=== PATIENT | female | born 1985 | race African-American/Black ===

== ENCOUNTER 2017-04-08 08:54 | Emergency (ER) | payer OTHER ==
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
[~2017-04-08 08:54] MED LIST: BP MED; FLEXERIL10 M1 PO; IBUPROFEN800 MG PO
[2017-04-08 10:08] LABS: URINE SOURCE CLEAN CATCH
[2017-04-08 10:12] LABS: BASOPHIL# 0.4 X10e3 (0-0.3); BASOPHIL% 4.1 % (0-2.5); EOSINOPHIL# 0.5 X10e3 (0-0.7); EOSINOPHIL% 5.2 % (0.0-7.0); HEMATOCRIT 37.1 % (35.0-45.0); HEMOGLOBIN 11.6 gm/dL (12.0-16.0); LYMPHOCYTE% 33.3 % (17.0-45.0); MEAN CELL VOLUME 64.8 FL (83-96); MEAN CORPUSCULAR HEMOGLOBIN 20.2 PG (28-34); MEAN CORPUSCULAR HGB CONC 31.2 g/dL (30-36); MEAN PLATELET VOLUME 7.9 FL (6.5-11.5); MONOCYTE# 0.5 X10e3 (0-1.0); MONOCYTE% 5.5 % (3.0-12.0); NEUTROPHIL# 4.6 X10e3 (1.5-7.1); NEUTROPHIL% 51.9 % (40-75); PLATELET COUNT 234 X10e3 (140-420); RED BLOOD COUNT 5.72 X10e (3.90-5.30); WHITE BLOOD COUNT 8.9 X10e3 (4.0-10.5)
[2017-04-08 10:15] LABS: DIFF IND YES
[2017-04-08 10:22] LABS: URINE APPEARANCE CLEAR; URINE BACTERIA AUWI NEG (NEGATIVE); URINE BILIRUBIN NEG (NEG); URINE BLOOD NEG (NEG); URINE COLOR YELLOW; URINE GLUCOSE NEG (NEG); URINE KETONE NEG (NEG); URINE LEUKOCYTE ESTERASE TRACE (NEG); URINE NITRATE NEG (NEG); URINE PROTEIN NEG (NEG); URINE SPECIFIC GRAVITY 1.026 (1.003-1.035); URINE SQUAMOUS EPITHELIAL CELL OCC /[HPF]; UWBCS1 AUWI 0-2 (0-5)
[2017-04-08 10:23] LABS: CULTURE INDICATED? NO
[2017-04-08 10:35] LABS: PLATELET ESTIMATE NORMAL (NORMAL)
[2017-04-08 10:36] LABS: ANISOCYTOSIS SL; HYPOCHROMIA SL
[2017-04-08 10:38] LABS: ALBUMIN SERUM 4.2 g/dL (3.5-5.0); BILIRUBIN, DIRECT 0.2 mg/dL (0.0-0.2); BILIRUBIN,INDIRECT 0.7 mg/dL (0.0-0.9); BILIRUBIN,TOTAL 0.9 mg/dL (0.2-2.0); CALCIUM SERUM 9.1 mg/dL (8.4-10.2); CREATININE SERUM 0.5 mg/dL (0.6-1.4); GLOM FILT RATE Estimated 149.5 mL/min (>60); POTASSIUM 3.6 mmol/L (3.5-5.1); PROTEIN TOTAL SERUM 7.7 g/dL (6.0-8.3)
== END 2017-04-08 13:50 | disposition home or self-care (01) ==
LOC: CED 08:54
PROVIDERS: Emergency Medicine
DX: S39.91XA Unspecified injury of abdomen, initial encounter (principal); J45.909 Unspecified asthma, uncomplicated; I10 Essential (primary) hypertension; D64.9 Anemia, unspecified; V49.00XA Driver injured in collision with unspecified motor vehicles in nontraffic accident, initial encounter; Y92.410 Unspecified street and highway as the place of occurrence of the external cause
CPT/HCPCS: 36415; 74177; 80048; 80076; 81003; 84703; 85025; 96374; 99284; J1885; Q9967